=== PATIENT | male | born 1940 | race African-American/Black ===

== ENCOUNTER 2022-11-24 22:13 | Inpatient (IN) | payer MEDICARE ==
[~2022-11-24] VITALS: Ht 180.3 cm; Wt 91.2 kg
[2022-11-24 22:15] VITALS: BP 156/67; PULSE 79; RESP 18; TEMP 98.4; O2SAT 99
[2022-11-24] MEDS ORDERED: HYGROTON25 MG PO (23:48)
[2022-11-24] MEDS ORDERED: LISINOPRIL10 MG PO (23:50)
[2022-11-24] MEDS ORDERED: CLONIDINE HCL0.1 MG PO (23:50)
[2022-11-24] MEDS ORDERED: AMLODIPINE BESYL5 MG PO (23:50)
[2022-11-24] MEDS ORDERED: METOPROLOL TART50 MG PO (23:50)
[2022-11-25] VITALS (8 sets, daily range): BP systolic 141–159; BP diastolic 67–75; PULSE 68–80; RESP 16–18; TEMP 98.4–99.2; O2SAT 99–100
[2022-11-25] MEDS: SODIUM CHLORIDE 0.9% 1000ML 1,000 ML IV SCH ×3 (00:42→21:03)
[2022-11-25] MEDS ORDERED: HYDRALAZINE HCL 20 MG/ML VIAL IV PRN (09:15)
[2022-11-25 09:16] LABS: BASOPHILS % 0.3 % (0.0-1.0); EOSINOPHILS # (AUTO) 0.2 (0.0-0.4); EOSINOPHILS % 2.3 % (0.0-6.0); HEMATOCRIT 34.7 % (38.2-49.6); HEMOGLOBIN 11.4 g/dL (14.0-18.0); LYMPHOCYTES # (AUTO) 1.5 (1.0-3.2); LYMPHOCYTES % 15.2 % (18.0-39.1); MEAN CORPUSCULAR HEMOGLOBIN 27.8 pg (28-32); MEAN CORPUSCULAR HGB CONC 32.9 g/dL (31-35); MEAN CORPUSCULAR VOLUME 84.6 fL (81-99); MONOCYTES # (AUTO) 1.3 (0.2-0.8); MONOCYTES % 12.9 % (4.4-11.3); NEUTROPHILS # (AUTO) 6.6 (2.1-6.9); NEUTROPHILS % 68.1 % (38.7-80.0); PLATELET COUNT 244 x10e3/uL (140-360); RED CELL DISTRIBUTION WIDTH 14.7 % (11.7-14.4)
[2022-11-25 09:36] LABS: ALBUMIN 2.7 g/dL (3.5-5.0); ALBUMIN/GLOBULIN RATIO 0.7 (0.8-2.0); ANION GAP 11.7 mmol/L (8-16); CREATININE, SERUM 0.98 mg/dL (0.72-1.25); POTASSIUM 3.7 mmol/L (3.5-5.1)
[2022-11-26] VITALS (7 sets, daily range): BP systolic 137–162; BP diastolic 68–77; PULSE 70–82; RESP 16–21; TEMP 97.7–99.1; O2SAT 100
[2022-11-26 05:43] LABS: BASOPHILS % 0.3 % (0.0-1.0); EOSINOPHILS # (AUTO) 0.2 (0.0-0.4); EOSINOPHILS % 2.6 % (0.0-6.0); HEMATOCRIT 33.9 % (38.2-49.6); LYMPHOCYTES # (AUTO) 1.6 (1.0-3.2); LYMPHOCYTES % 17.6 % (18.0-39.1); MEAN CORPUSCULAR HEMOGLOBIN 27.4 pg (28-32); MEAN CORPUSCULAR HGB CONC 32.4 g/dL (31-35); MEAN CORPUSCULAR VOLUME 84.5 fL (81-99); MONOCYTES # (AUTO) 1.2 (0.2-0.8); MONOCYTES % 12.9 % (4.4-11.3); NEUTROPHILS % 65.1 % (38.7-80.0); PLATELET COUNT 250 x10e3/uL (140-360); RED BLOOD COUNT 4.01 x10e6/uL (4.3-5.7); RED CELL DISTRIBUTION WIDTH 14.3 % (11.7-14.4)
== END 2022-11-26 21:45 | disposition other institution (70) | DRG 392 ==
LOC: MED/SURG 22:14
PROVIDERS: ADMIT Internal Medicine; ATTEND Internal Medicine
DX: R19.00 Intra-abdominal and pelvic swelling, mass and lump, unspecified site (principal); G61.0 Guillain-Barre syndrome; E78.5 Hyperlipidemia, unspecified; I25.10 Atherosclerotic heart disease of native coronary artery without angina pectoris; I11.0 Hypertensive heart disease with heart failure; I50.9 Heart failure, unspecified; D63.8 Anemia in other chronic diseases classified elsewhere; E88.09 Other disorders of plasma-protein metabolism, not elsewhere classified; Z20.822 Contact with and (suspected) exposure to COVID-19
CPT/HCPCS: 0223U; 36415; 80053; 85025; J7030